=== PATIENT | male | born 2000 | race Two or more races ===

== ENCOUNTER 2025-10-06 12:21 | Inpatient (IN) | payer MEDICAID, SELFPAY ==
[2025-10-06] VITALS (12 sets, daily range): BP systolic 109–134; BP diastolic 71–100; PULSE 99–149; RESP 20–45; TEMP 36.3–39.3; O2SAT 90–99; BMI 16.6
--- NOTE | 2025-10-06 12:44 | EKG_ITS ---
[facility] Test Date: 2025-10-06 Pat Name: JAZMYNE CEDEÑO Department: Room: - Gender: Male Application Development Specialist: : [id number] Requested By: Henry Dimas Order Number: [id number] Reading MD: Henry Dimas Measurements Intervals [place] Rate: 134 P: 16 WY: 131 QRS: -85 QRSD: 77 T: 8 QT: 299 QTc: 448 Interpretive Statements SINUS TACHYCARDIA PATTERN CONSISTENT WITH PULMONARY DISEASE LEFT ANTERIOR FASCICULAR BLOCK [QRS AXIS <= -45, QR IN I, RS IN II] No previous ECG available for comparison /[id number]/S0/[id number].pdf
--- NOTE | 2025-10-06 12:49 | XR_ITS ---
AP portable semiupright chest film on 10/06/2025 1:06 p.m. CLINICAL HISTORY: None given COMPARISON STUDY: Chest film of 08/28/2005 FINDINGS: On the portable nature of this film together with extremely poor inspiration and high position of the diaphragm markedly obscures the lungs. Since the previous film the patient has had extensive surgical fusion of a large portion of the spine, there is slight rotatory scoliosis of the spine convexity to the right. The fusion hardware with bilateral pedicular screws and connecting rods begins at T2 and extends down at least to the level of L1, it could extend farther below the lower edge of the film In the posterior base of the right lower lobe there is a small localized patch of alveolar consolidation most consistent with a small zone of pneumonitis. In the retrocardiac portion of the left lower lobe, there is abnormal increased density. This produces multiple air bronchograms and it produces complete obscuration of the left hemidiaphragm. IMPRESSION: 1. Since the previous chest film the patient has had a very long spinal fusion operation, as outlined above. 2. There is evidence of major alveolar consolidation throughout all basal segments of the left lower lobe consistent with significant pneumonia. There is a small patch of pneumonitis also seen in the posterior base of the right lower lobe
[2025-10-06 13:17] LABS: Lactate (Lactic Acid) 2.8 mMol/L (0.4-2.0)
[2025-10-06 13:22] LABS: Basophils # (Auto) 0.0 Thou/mm3 (0.0-0.2); Basophils % (Auto) 0 % (0-2.5); Eosinophils # (Auto) 0.0 Thou/mm3 (0.0-0.5); Eosinophils % (Auto) 0 % (0-10); Hematocrit 45.0 % (41.0-53.0); Hemoglobin 15.5 g/dL (13.5-16.0); Immature Granulocytes Auto 0.08 Thou/mm3 (0.00-0.00); Lymphocytes # (Auto) 0.9 Thou/mm3 (1.0-4.8); Lymphocytes % (Auto) 6 % (10-50); Mean Corpuscular HGB Conc 34.4 g/dl (31.0-37.0); Mean Corpuscular Hemoglobin 28.4 pg (25.0-35.0); Mean Corpuscular Volume 82 fL (80-100); Monocytes # (Auto) 1.0 Thou/mm3 (0.0-0.8); Monocytes % (Auto) 7 % (0-12); Neutrophils # (Auto) 12.8 Thou/mm3 (1.8-7.7); Neutrophils % (Auto) 86 % (37-80); Nucleated Red Blood Cell # 0.00 Thou/mm3 (0.00-0.00); Nucleated Red Blood Cell % 0 /100 WBC (0); Platelet Count 260 Thou/mm3 (140-440); RDW Standard Deviation 41.8 fL (35.1-43.9); Red Blood Count 5.46 Miln/mm3 (4.50-5.90); White Blood Count 14.8 Thou/mm3 (3.8-10.6)
[2025-10-06 13:55] LABS: Alanine Aminotransferase 42 U/L (10-49); Albumin, Serum 4.3 gm/dL (3.5-5.0); Albumin/Globulin Ratio 1.4 (1.2-2.2); Alkaline Phosphatase 155 U/L (46-116); Anion Gap 13 (7-16); Aspartate Amino Transferase 29 U/L (0-34); BUN/Creatinine Ratio 16 Ratio (12-20); Bilirubin,Total 1.0 mg/dL (0.3-1.2); Blood Urea Nitrogen 8 mg/dL (9-23); Calcium 8.7 mg/dL (8.3-10.6); Calcium (Corrected) 8.7 mg/dL (8.5-10.1); Carbon Dioxide 25.1 mMol/L (20.0-31.0); Chloride 98 mMol/L (98-107); Creatinine (Component) 0.5 mg/dL (0.6-1.3); Estimated Creatinine Clearance 177.6 mL/min (>60); Globulin 3.1 gm/dL (2.3-3.5); Glucose 136 mg/dL (74-106); Lipase 34 U/L (12-53); Osmolality,Calculated 272 (275-295); Potassium 3.5 mMol/L (3.4-5.1); Sodium 136 mMol/L (136-145); Total Protein 7.4 gm/dL (5.7-8.2); eGFR > 60 See Note
[2025-10-06 13:56] LABS: B-Type Natriuretic Peptide 21 pg/mL (0-100)
[2025-10-06] MEDS: ALBUTEROL/IPRATROPIUM (Duoneb) RT SOL 3 ML NEBU INH (13:58)
[2025-10-06] MEDS: SODIUM CHLORIDE 0.9% 1000 ML 1,000 ML 150 ML IV ×2 (14:08→21:59)
[2025-10-06] MEDS: cefTRIAXone/D5w 1gm IV premix 1 GM/50 ML BAG IV (14:52)
--- NOTE | 2025-10-06 14:52 | PD.EDSOB ---
ED SOB =RME/HPI General Chief Complaint: Shortness of Breath/Dyspnea Stated Complaint: SOB Time Seen by Provider: 10/06/25 12:44 Source: family Arrival date/time: 10/06/25 12:21 Mode of arrival: EMS Limitations: physical limitation RME / HPI RME / HPI Narrative: This patient is a nonverbal bed bound 25-year-old male with a history of traumatic brain injury who basically operates as a paraplegic arrives to the ED today via EMS due to complaints of shortness of breath at home per brother. Brother states the patient began displaying signs of shortness of breath with some accessory muscle use and retractions. Brother states the symptoms began a day and a half ago and have continued. Mother states possible subjective fever. At time of arrival, patient's blood pressure was 134/89 with a pulse rate of 146 and a respiration rate of 33. Temperature was 102.7. Patient appeared moderately toxic at time of evaluation. Related Data Allergies Allergy/AdvReac Type Severity Reaction Status Date / Time amoxicillin Allergy Verified 10/06/25 13:22 Review of Systems Review of Systems Systems Reviewed: All systems reviewed, normal except as documented Narrative Review of Systems: Patient has a history of TBI and is nonverbal. Brother was present and gave all medical history related to patient's current complaints. Past Medical History Past Medical History NEUROLOGIC: Positive Traumatic Brain Injury CARDIAC: Negative Congestive Heart Failure RESPIRATORY: Negative Chronic Obstructive Pulmonary Disease (COPD) GENITOURINARY: Negative Renal Disease MUSCULOSKELETAL: Positive Musculoskeletal Disorders (SCOLIOSIS) and Scoliosis ENDOCRINE: Negative Diabetes Mellitus Type 1 or Diabetes Mellitus Type 2 Social History SMOKING STATUS: Never smoker ED Exam General Limitations: Present physical limitation General appearance: Present alert and other (Patient appears moderately ill at time of evaluation.) Head Head exam: Present other (Patient has a history of TBI with signs of cranial intervention.) Eye Eye exam: Present normal appearance, PERRL and EOMI ENT ENT exam: Present normal exam, normal oropharynx and mucous membranes moist Neck Neck exam: Present normal inspection and trachea midline Chest Chest inspection: Present normal inspection Respiratory Respiratory exam: Present other (Patient displays patchy rhonchi and wheezing throughout bilateral lung mallory. Patient displays shallow inspiration.) Cardiovascular Cardiovascular exam: Present regular rate, tachycardia and normal heart sounds Abdominal Exam Abdominal exam: Present soft and normal bowel sounds Rectal Exam Rectal exam: Present deferred Extremities Exam Extremities exam: Present other (Patient has a history of TBI and presents as a paraplegic with global muscle contraction) Back Exam Back exam: Present other (Patient has a history of scoliosis and displays signs of surgical intervention.) Neurological Exam Neurological exam: Present other (History of TBI and nonverbal communication) Psychiatric Psychiatric exam: Present other (Patient did not appear to be in distress due to facial expressions.) Skin Skin exam: Present warm, dry, intact and normal color Course Quality Measures Current suspected stage: sepsis Possible source: pulmonary Blood cultures ordered: completed in ED Antibiotic ordered: Yes Pertinent labs: 10/06/25 12:54 Lactic Acid 2.8 H mMol/L (0.4-2.0) sepsis Orders Category Date Time Status EKG (ED ONLY) *Do not use* NOW Care 10/06/25 12:44 Completed IV [Insert IV] NOW Care 10/06/25 12:52 Active EKG (ED Only) Stat Exams 10/06/25 12:44 Draft XR chest 1V portable Stat Exams 10/06/25 12:49 Completed BNP [B-Type Natriuretic Peptide] Stat Lab 10/06/25 12:54 Completed CBC Stat Lab 10/06/25 12:54 Completed CMP [Comprehensive Metabolic Panel] Stat Lab 10/06/25 12:54 Completed COVID-19 Antigen (In-House) Stat Lab 10/06/25 14:26 Received FLU A&B [Influenza A & B Rapid Panel] Stat Lab 10/06/25 14:26 Received Lactic Acid [Lactate (Lactic Acid)] Stat Lab 10/06/25 12:54 Results Lipase Stat Lab 10/06/25 12:54 Completed Albuterol/Ipratr Rt Theresa [Duoneb Rt Theresa] Med 10/06/25 13:45 Discontinued 3 ml INH X1 ONE Azithromycin Inj [Zithromax Inj] 500 mg Med 10/06/25 14:37 Active Sodium Chloride 0.9% 250 ml [Ns] 250 ml IV X1 Sodium Chloride 0.9% 1000 ml [Ns] 1,000 ml Med 10/06/25 13:44 Active IV 150 mls/hr Sodium Chloride 0.9% 1000 ml [Ns] 1,000 ml Med 10/06/25 13:40 Discontinued IV 999 mls/hr cefTRIAXone/D5w 1gm IV premix [Rocephin/D5w 1gm IV Med 10/06/25 14:37 Active premix] 1 gm in 50 ml IV X1 dexAMETHasone INJ [Decadron Inj] Med 10/06/25 13:45 Discontinued 10 mg IVP X1 ONE Reevaluation(s) Reevaluation #1: Patient's vitals were improving at reevaluation at 1500. Vital Signs Vital signs: Vital Signs Temperature 102.7 F H 10/06/25 12:40 Pulse Rate 146 H 10/06/25 12:40 Respiratory Rate 33 H 10/06/25 12:40 Blood Pressure 134/89 H 10/06/25 12:40 Pulse Oximetry (%) 94 L 10/06/25 12:40 Oxygen Delivery Method Aerosol Mask 10/06/25 12:40 Oxygen Flow Rate 15 10/06/25 12:40 Shortness of Breath / Dyspnea Patient data External records reviewed:: [facility] previous records Clinical information provided by:: family Social determinants that could affect healthcare access:: other (specify) (Patient is bedbound due to a history of TBI.) Patient has the following chronic illnesses:: Scoliosis that has required surgical intervention. History of TBI. How is presenting disease/condition affected by chronic disease/condition?: uneffected by Evaluation data The following diagnostics were reviewed and interpreted by me:: lab results, radiology exam(s) and EKG tracing(s) Lab and/or radiology exams considered but not ordered:: None Interpretation Summary: All studies performed the ED reevaluated by me personally. Serum studies revealed a WBC of 14.8 with a mild left shift. Lactic acid of 2.8 which responded to with fluid resuscitation. Due to the imaging studies and possible pulmonary edema, 30 mL/kg was not ordered but rather, 150 mL/h. Additional notation of elevated alk phos at 155. BNP was 21. EKG revealed a sinus tachycardia with a rate of 134. Pattern was consistent with pulmonary disease. Additional findings possible left anterior fascicular block was noted. CO interval of 131 and QT interval of 299. Chest x-ray confirmed a left lower lobe pneumonia. Sepsis protocol was initiated with dual antibiotics placed. Discussed the case with resident Dr. Jovel. Advised my patient presentation as well as laboratory, imaging and EKG results. He agreed to accept the patient as an admission. Patient will be admitted under Dr. Ni. Medications / Prescriptions Medications or Prescriptions considered but not ordered:: None Medication administrations:: Medication Administration History Sodium Chloride (Ns) 1,000 mls @ 150 mls/hr IV .Q6H40M YEYO Stop: 11/05/25 13:43 Last Admin: 10/06/25 14:08 Dose: 150 mls/hr Documented By: MEGGAN Ceftriaxone Sodium/Dextrose (Rocephin/D5w 1gm Iv Premix) 1 gm in 50 mls @ 100 mls/hr IV X1 ONE Stop: 10/06/25 15:06 Azithromycin 500 mg/ Sodium (Chloride) 250 mls @ 250 mls/hr IV X1 ONE Stop: 10/06/25 15:36 Discontinued Medications Albuterol/Ipratropium (Albuterol/Ipratropium (Duoneb) Rt Theresa 3 Ml Nebu) 3 ml INH X1 ONE Stop: 10/06/25 13:46 Last Admin: 10/06/25 13:58 Dose: 3 ml Documented By: AIDAN Dexamethasone Sodium Phosphate (Dexamethasone Sod Phos Inj 10 Mg/Ml Vial) 10 mg IVP X1 ONE Stop: 10/06/25 13:46 Last Admin: 10/06/25 14:08 Dose: 10 mg Documented By: MEGGAN Sodium Chloride (Ns) 1,000 mls @ 999 mls/hr IV .Q1H1M ONE Stop: 10/06/25 14:40 See above Consultations Consultation(s) initiated? (list below): Yes Consultation #1 (Physician, Specialty, Details): As noted above Diagnosis Shortness of Breath Differential Diagnosis: community acquired pneumonia Most likely diagnosis given after review of the tests above:: CAP Admission Indicated Admission indicated?: indicated Explain why admission is indicated or not indicated:: Due to the patient's elevated temperature, shortness of breath concerns and tachypneic response, patient requires admission for management of his progressive pneumonia. Admission Request Was there a request for admission?: Yes Admission Attestation Admission request attestation: Discussed case with Dr. Jovel from Hospitalist service regarding admission. Discussed patients ED course, exam findings, labs, and radiology results. The Hospitalist agreed to accept the patient for admission. Patient will be admitted under Dr. Ni Disposition Plan Disposition Plan: Admit Discharge Plan Plan Patient Disposition: Admit Acute Care w/in Hospital Prescriptions/Referrals Referrals: Jeni Gamez EQUIPMENT MAINTENANCE TECHNICIAN [Primary Care Provider] - In 1 week Problem List Clinical Impression: Community acquired pneumonia Patient/Caregiver Discharge Instructions Print Language: Luxembourgish Stand Alone Forms: Kelsey Award Info., Patient Portal Info Letter
[2025-10-06 15:02] LABS: COVID-19 Antigen (In-House) Negative (Negative); Influenza A Ag Positive; Influenza B Ag Negative
[2025-10-06] MEDS: AZITHROMYCIN INJ 500 MG in SODIUM CHLORIDE 0.9% 250 ML 250 ML 250 MG IV (15:21)
--- NOTE | 2025-10-06 16:11 | XR_ITS ---
Examination: Abdomen AP single view Technique: AP portable supine abdomen, single view Exam date and time: October 06, 2025, 1622 hours INDICATION: Abdominal pain today FINDINGS: Severe thoracolumbar dextroscoliosis and lower lumbar levoscoliosis with orthopedic support rods Moderate air and stool throughout the colon No obstruction Significant retrocardiac density Severe osteopenia Congenital right hip dysplasia IMPRESSION: Moderate air and stool throughout the colon, no obstruction Significant pneumonia left base
[2025-10-06 16:12] LABS: Reflex Lactate? Y
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
[2025-10-06] MEDS: ACETAMINOPHEN IVPB 1,000 MG/100 ML VIAL 250 MG IV ×2 (16:39→17:43)
[2025-10-06 16:50] LABS: Lactic Acid, 3 HR 1.0 mMol/L (0.4-2.0)
[2025-10-06] MEDS: SODIUM CL RT SOL 3% 4 ML NEBU (NON-FORMULARY) INH (18:05)
[2025-10-06] MEDS: VANCOMYCIN/WATER 1250 MG IVPB 250 ML 120 MG IV (18:49)
--- NOTE | 2025-10-06 21:09 | PD.IMCONS ---
HPI Data of Consult Requesting Physician: Rodrick Ni MD Primary Care Provider: Jeni Gamez NP Consult Narrative Reason for consult: cellulitis at the PEG site, fever, leukocytosis, History of present illness: 25 years old male with traumatic brain injury paraplegia and mentally challenged who was admitted with pneumonia influenza A hypoxic respiratory failure SIRS criteria he met seizure disorder He was also found to be having cellulitis around the PEG tube and I have been consulted Currently patient is on IV Zithromax and IV vancomycin No history is obtainable from the patient cc:: cc: Rodrick Ni MD Review of Systems Review of Systems ROS Unobtainable: unobtainable due to medical condition Past Medical History Surgical History OTHER SURGICAL HX: As in the history of present illness Meds Home Medications and Allergies Allergies Allergy/AdvReac Type Severity Reaction Status Date / Time amoxicillin Allergy Verified 10/06/25 13:22 Exam Vital Signs Temp Pulse Resp BP Pulse Ox O2 Del Method O2 Flow Rate 98.6 F 99 31 H 120/79 97 Oxy Mask 10 10/06/25 19:20 10/06/25 19:20 10/06/25 19:20 10/06/25 19:20 10/06/25 19:20 10/06/25 19:20 10/06/25 19:20 Constitutional Comments: Chronically ill-appearing Routine Respiratory Exam Comments: Scattered rhonchi Routine Abdominal Exam Comments: Soft redness around the PEG tube Results Labs 10/07/25 05:07 10/07/25 04:55 Labs: Short CBC 10/06/25 Range/Units 12:54 WBC 14.8 H (3.8-10.6) Thou/mm3 Hgb 15.5 (13.5-16.0) g/dL Hct 45.0 (41.0-53.0) % Plt Count 260 (140-440) Thou/mm3 BMP 10/06/25 12:54 Sodium 136 Potassium 3.5 Chloride 98 Carbon Dioxide 25.1 BUN 8 L Creatinine 0.5 L Glucose 136 H Calcium 8.7 Liver Function 10/06/25 Range/Units 12:54 Total Bilirubin 1.0 (0.3-1.2) mg/dL AST 29 (0-34) U/L ALT 42 (10-49) U/L Alkaline Phosphatase 155 H (46-116) U/L Albumin 4.3 (3.5-5.0) gm/dL Assessment and Plan Additional Assessment & Plan Additional Plan: # Fever leukocytosis most likely due to the influenza A pneumonia and not the cellulitis at the PEG site might be contributing to the leukocytosis. There is possible Plan Continue IV antibiotics Clean the PEG site every shift with Betadine Will follow the patient
[2025-10-06] MEDS: levETIRAcetam INJ 100 MG/ML VIAL 5ML 500 MG IVP (21:51)
[2025-10-06] MEDS: HEPARIN SOD INJ 5000 UNIT/ML VIAL SC (23:34)
[2025-10-07] VITALS (13 sets, daily range): BP systolic 106–120; BP diastolic 66–75; PULSE 83–111; RESP 12–30; TEMP 35.9–37.1; O2SAT 93–99; BMI 18.1; BMI 18.0
[2025-10-07] MEDS: ACETAMINOPHEN IVPB 1,000 MG/100 ML VIAL 250 MG IV ×2 (00:26→06:04)
[2025-10-07] MEDS: SODIUM CL RT SOL 3% 4 ML NEBU (NON-FORMULARY) INH ×6 (03:17→22:43)
[2025-10-07 05:29] LABS: Basophils # (Auto) 0.0 Thou/mm3 (0.0-0.2); Basophils % (Auto) 0 % (0-2.5); Eosinophils # (Auto) 0.0 Thou/mm3 (0.0-0.5); Eosinophils % (Auto) 0 % (0-10); Hematocrit 40.8 % (41.0-53.0); Hemoglobin 13.6 g/dL (13.5-16.0); Immature Granulocytes Auto 0.08 Thou/mm3 (0.00-0.00); Lymphocytes # (Auto) 0.8 Thou/mm3 (1.0-4.8); Lymphocytes % (Auto) 5 % (10-50); Mean Corpuscular HGB Conc 33.3 g/dl (31.0-37.0); Mean Corpuscular Hemoglobin 28.2 pg (25.0-35.0); Mean Corpuscular Volume 85 fL (80-100); Monocytes # (Auto) 0.4 Thou/mm3 (0.0-0.8); Monocytes % (Auto) 3 % (0-12); Neutrophils # (Auto) 14.8 Thou/mm3 (1.8-7.7); Neutrophils % (Auto) 92 % (37-80); Nucleated Red Blood Cell # 0.00 Thou/mm3 (0.00-0.00); Nucleated Red Blood Cell % 0 /100 WBC (0); Platelet Count 254 Thou/mm3 (140-440); RDW Standard Deviation 43.7 fL (35.1-43.9); Red Blood Count 4.82 Miln/mm3 (4.50-5.90); White Blood Count 16.1 Thou/mm3 (3.8-10.6)
[2025-10-07] MEDS: SODIUM CHLORIDE 0.9% 1000 ML 1,000 ML 150 ML IV ×3 (05:29→20:50)
[2025-10-07 05:46] LABS: Collection Type, Urine Catheter; Squamous Epithelial Cell,Urine 0 /hpf (0-5)
[2025-10-07 06:01] LABS: Bilirubin,Urine Negative (Negative); Blood,Urine Negative (Negative); Clarity,Urine Clear (Clear/Hazy); Color,Urine Yellow (Lt Yel-Yel); Glucose, Urine Negative (Negative); Ketones,Urine Negative (Negative); Leukocyte Esterase,Urine Negative (Negative); Nitrite,Urine Negative (Negative); PH,Urine 6.5 (5.0-7.0); Protein,Urine Trace (Neg - Trace); RBC,Urine 1 /hpf (0-3); Specific Gravity,Urine 1.039 (1.001-1.035); Urobilinogen,Urine Negative mg/dL (0.0-1.0); WBC,Urine 3 /hpf (0-5)
[2025-10-07] MEDS: HEPARIN SOD INJ 5000 UNIT/ML VIAL SC ×2 (06:08→22:33)
[2025-10-07 06:18] LABS: Alanine Aminotransferase 38 U/L (10-49); Albumin, Serum 3.8 gm/dL (3.5-5.0); Albumin/Globulin Ratio 1.3 (1.2-2.2); Alkaline Phosphatase 134 U/L (46-116); Anion Gap 12 (7-16); Aspartate Amino Transferase 32 U/L (0-34); BUN/Creatinine Ratio 20 Ratio (12-20); Bilirubin,Total 0.8 mg/dL (0.3-1.2); Blood Urea Nitrogen 8 mg/dL (9-23); Calcium 8.6 mg/dL (8.3-10.6); Calcium (Corrected) 8.8 mg/dL (8.5-10.1); Carbon Dioxide 24.7 mMol/L (20.0-31.0); Chloride 107 mMol/L (98-107); Creatinine (Component) 0.4 mg/dL (0.6-1.3); Estimated Creatinine Clearance 222.1 mL/min (>60); Free T4 (Free Thyroxine) 1.41 ng/dL (0.89-1.76); Globulin 3.0 gm/dL (2.3-3.5); Glucose 131 mg/dL (74-106); Magnesium 2.0 mg/dL (1.6-2.6); Osmolality,Calculated 287 (275-295); Phosphorous 3.1 mg/dL (2.4-5.1); Potassium 3.6 mMol/L (3.4-5.1); Sodium 144 mMol/L (136-145); Thyroid Stimulating Hormone 0.42 uIU/mL (0.55-4.78); Total Protein 6.8 gm/dL (5.7-8.2); eGFR > 60 See Note
[2025-10-07] MEDS: VANCOMYCIN/WATER 1GM IVPB 200 ML IV ×3 (09:02→22:46)
[2025-10-07] MEDS: cefTRIAXone/D5w 1gm IV premix 1 GM/50 ML BAG IV (09:02)
[2025-10-07] MEDS: AZITHROMYCIN INJ 500 MG in SODIUM CHLORIDE 0.9% 250 ML 250 ML 250 MG IV (09:02)
[2025-10-07] MEDS: levETIRAcetam INJ 100 MG/ML VIAL 5ML 500 MG IVP ×2 (09:03→20:43)
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
[2025-10-07] MEDS: ALBUTEROL/IPRATROPIUM (Duoneb) RT SOL 3 ML NEBU INH ×4 (10:30→22:35)
[2025-10-07 13:32] LABS: Cocci Serology, IgM Negative (Negative)
--- NOTE | 2025-10-07 19:10 | PD.IMPROG ---
Documentation for date of: 10/07/25 Subjective Subjective Interval history: Patient evaluated PEG site clearly checked It is the bile which is coming to the PEG site The site is really not infected it is just skin irritation from the bile and the acid I went to the nursing station and talk to the RN to put a 4 x 4 splint in the middle and changed to every 8 hours It will soak up the bile and the acid and help healing the skin on the surface Exam Vital Signs Temp Pulse Resp BP Pulse Ox O2 Del Method O2 Flow Rate 97.1 F 102 H 20 117/66 95 Oxy Mask 4 10/07/25 16:00 10/07/25 16:00 10/07/25 16:00 10/07/25 16:00 10/07/25 16:00 10/07/25 16:00 10/07/25 16:00 Objective Labs 10/07/25 05:07 10/07/25 04:55 Labs: Laboratory Results - last 24 hr 10/06/25 10/07/25 10/07/25 19:47 04:55 05:07 WBC 16.1 H RBC 4.82 Hgb 13.6 Hct 40.8 L MCV 85 MCH 28.2 MCHC 33.3 RDW Std Deviation 43.7 Plt Count 254 Neut % (Auto) 92 H Lymph % (Auto) 5 L [place] % (Auto) 3 Eos % (Auto) 0 Baso % (Auto) 0 Neut # (Auto) 14.8 H Lymph # (Auto) 0.8 L [place] # (Auto) 0.4 Eos # (Auto) 0.0 Baso # (Auto) 0.0 Immature Gran # (Auto) 0.08 H Absolute Nucleated RBC 0.00 Immature Gran % 1 H Nucleated RBC % 0 Sodium 144 Potassium 3.6 Chloride 107 Carbon Dioxide 24.7 Anion Gap 12 BUN 8 L Creatinine 0.4 L Estim Creat Clear Calc 222.1 eGFR > 60 BUN/Creatinine Ratio 20 Glucose 131 H Calculated Osmolality 287 Calcium 8.6 Corrected Calcium 8.8 Phosphorus 3.1 Magnesium 2.0 Total Bilirubin 0.8 AST 32 ALT 38 Alkaline Phosphatase 134 H D Total Protein 6.8 Albumin 3.8 D Globulin 3.0 Albumin/Globulin Ratio 1.3 TSH 0.42 L Free T4 1.41 Ur Collection Type Catheter Urine Color Yellow Urine Clarity Clear Urine pH 6.5 Ur Specific [place] 1.039 H Urine Protein Trace Urine Glucose (UA) Negative Urine Ketones Negative Urine Blood Negative Urine Nitrite Negative Urine Bilirubin Negative Urine Urobilinogen (Auto) Negative Ur Leukocyte Esterase Negative Urine RBC 1 Urine WBC 3 Ur Squamous Epith Cells 0 Urine Bacteria None Coccidioides IgM Ab Negative Impressions Impression: Gastric content induced localized chemical cellulitis Plan Dressing changes every 8 hours as recommended to the nursing staff Assessment & Plan A&P Narrative # Fever leukocytosis most likely due to the influenza A pneumonia and not the cellulitis at the PEG site might be contributing to the leukocytosis. There is possible Plan Continue IV antibiotics Clean the PEG site every shift with Betadine Will follow the patient Time Spent With Patient Time: Total time spent is greater than 50% in coordination of care (as documented) at patient's floor/unit and/or counseling patient:
[2025-10-07 22:14] LABS: Vancomycin,Trough 11.8 mcg/mL (5.0-10.0)
[2025-10-08] VITALS (13 sets, daily range): BP systolic 114–121; BP diastolic 68–83; PULSE 88–148; RESP 18–41; TEMP 36.1–36.6; O2SAT 94–99
[2025-10-08] MEDS: ACETAMINOPHEN IVPB 1,000 MG/100 ML VIAL 250 MG IV (00:44)
[2025-10-08] MEDS: ALBUTEROL/IPRATROPIUM (Duoneb) RT SOL 3 ML NEBU INH ×6 (02:27→23:04)
[2025-10-08 05:14] LABS: Basophils # (Auto) 0.0 Thou/mm3 (0.0-0.2); Basophils % (Auto) 0 % (0-2.5); Eosinophils # (Auto) 0.0 Thou/mm3 (0.0-0.5); Eosinophils % (Auto) 0 % (0-10); Hematocrit 36.7 % (41.0-53.0); Hemoglobin 12.3 g/dL (13.5-16.0); Immature Granulocytes Auto 0.07 Thou/mm3 (0.00-0.00); Lymphocytes # (Auto) 2.0 Thou/mm3 (1.0-4.8); Lymphocytes % (Auto) 16 % (10-50); Mean Corpuscular HGB Conc 33.5 g/dl (31.0-37.0); Mean Corpuscular Hemoglobin 28.5 pg (25.0-35.0); Mean Corpuscular Volume 85 fL (80-100); Monocytes # (Auto) 1.0 Thou/mm3 (0.0-0.8); Monocytes % (Auto) 8 % (0-12); Neutrophils # (Auto) 9.5 Thou/mm3 (1.8-7.7); Neutrophils % (Auto) 75 % (37-80); Nucleated Red Blood Cell # 0.00 Thou/mm3 (0.00-0.00); Nucleated Red Blood Cell % 0 /100 WBC (0); Platelet Count 326 Thou/mm3 (140-440); RDW Standard Deviation 44.4 fL (35.1-43.9); Red Blood Count 4.32 Miln/mm3 (4.50-5.90); White Blood Count 12.7 Thou/mm3 (3.8-10.6)
[2025-10-08] MEDS: VANCOMYCIN/WATER 1GM IVPB 200 ML IV ×3 (05:27→21:00)
[2025-10-08] MEDS: HEPARIN SOD INJ 5000 UNIT/ML VIAL SC ×3 (05:32→21:00)
[2025-10-08] MEDS: SODIUM CHLORIDE 0.9% 1000 ML 1,000 ML 150 ML IV ×3 (05:32→20:50)
[2025-10-08 05:44] LABS: Alanine Aminotransferase 31 U/L (10-49); Albumin, Serum 3.5 gm/dL (3.5-5.0); Albumin/Globulin Ratio 1.4 (1.2-2.2); Alkaline Phosphatase 111 U/L (46-116); Anion Gap 12 (7-16); Aspartate Amino Transferase 33 U/L (0-34); BUN/Creatinine Ratio 23 Ratio (12-20); Bilirubin,Total 0.6 mg/dL (0.3-1.2); Blood Urea Nitrogen 9 mg/dL (9-23); Calcium 8.4 mg/dL (8.3-10.6); Calcium (Corrected) 8.8 mg/dL (8.5-10.1); Carbon Dioxide 21.4 mMol/L (20.0-31.0); Chloride 110 mMol/L (98-107); Creatinine (Component) 0.4 mg/dL (0.6-1.3); Estimated Creatinine Clearance 241.6 mL/min (>60); Globulin 2.5 gm/dL (2.3-3.5); Glucose 92 mg/dL (74-106); Magnesium 1.9 mg/dL (1.6-2.6); Osmolality,Calculated 283 (275-295); Phosphorous 2.7 mg/dL (2.4-5.1); Potassium 3.5 mMol/L (3.4-5.1); Sodium 143 mMol/L (136-145); Total Protein 6.0 gm/dL (5.7-8.2); eGFR > 60 See Note
--- NOTE | 2025-10-08 09:00 | PC.SS ---
Follow up note: Cultures are pending.
[2025-10-08] MEDS: AZITHROMYCIN INJ 500 MG in SODIUM CHLORIDE 0.9% 250 ML 250 ML 250 MG IV (09:17)
[2025-10-08] MEDS: levETIRAcetam INJ 100 MG/ML VIAL 5ML 500 MG IVP ×2 (09:18→20:51)
[2025-10-08] MEDS: cefTRIAXone/D5w 1gm IV premix 1 GM/50 ML BAG IV (09:19)
--- NOTE | 2025-10-08 11:39 | PC.SS ---
Late note 10-07-25: SS met with patient and brother, Joo regarding pateint's d/c plan. Pt is non verbal. Pt was admitted for Sepsis. Brother confirmed demographic and contact information is correct on facesheet. Pt resides with both parents and brother. Pt transfers into wheelchair with assistance. Pt has a henok lift. Pt requires assistance with all ADLs. SS spoke to mom by phone who explained she is patient's medical decision maker. Pt utilizes nocturnal O2. Per mom, pt will return home upon dc. Patient?s pharmacy of choice is [facility]. Pt will require transportation home. D/C plan: Return home Next of Kin: Baljeet dorsey, mom, phone# [phone] or Joo Zelaya, dad, phone# [phone] PCP: [facility] Address: Correct on facesheet
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
--- NOTE | 2025-10-08 17:16 | PD.IMPROG ---
Documentation for date of: 10/08/25 Subjective Subjective Interval history: Patient evaluated Just the bile through the gastrostomy site but no pus or purulent drainage Exam Vital Signs Temp Pulse Resp BP Pulse Ox O2 Del Method O2 Flow Rate 97.0 F 110 H 18 119/70 98 Nasal Cannula 3 10/08/25 12:00 10/08/25 14:07 10/08/25 14:07 10/08/25 12:00 10/08/25 14:07 10/08/25 12:00 10/08/25 14:07 Objective Labs 10/08/25 04:55 10/08/25 04:55 Labs: Laboratory Results - last 24 hr 10/07/25 10/08/25 21:10 04:55 WBC 12.7 H RBC 4.32 L Hgb 12.3 L Hct 36.7 L MCV 85 MCH 28.5 MCHC 33.5 RDW Std Deviation 44.4 H Plt Count 326 D Neut % (Auto) 75 Lymph % (Auto) 16 [place] % (Auto) 8 Eos % (Auto) 0 Baso % (Auto) 0 Neut # (Auto) 9.5 H Lymph # (Auto) 2.0 [place] # (Auto) 1.0 H Eos # (Auto) 0.0 Baso # (Auto) 0.0 Immature Gran # (Auto) 0.07 H Absolute Nucleated RBC 0.00 Immature Gran % 1 H Nucleated RBC % 0 Sodium 143 Potassium 3.5 Chloride 110 H Carbon Dioxide 21.4 Anion Gap 12 BUN 9 Creatinine 0.4 L Estim Creat Clear Calc 241.6 eGFR > 60 BUN/Creatinine Ratio 23 H Glucose 92 Calculated Osmolality 283 Calcium 8.4 Corrected Calcium 8.8 Phosphorus 2.7 Magnesium 1.9 Total Bilirubin 0.6 AST 33 ALT 31 Alkaline Phosphatase 111 D Total Protein 6.0 Albumin 3.5 Globulin 2.5 Albumin/Globulin Ratio 1.4 Vancomycin Trough 11.8 H Impressions Impression: Bile induced dermatitis at the site of the PEG placement Went over the dressing changes with the nursing staff Assessment & Plan A&P Narrative # Fever leukocytosis most likely due to the influenza A pneumonia and not the cellulitis at the PEG site might be contributing to the leukocytosis. There is possible Plan Continue IV antibiotics Clean the PEG site every shift with Betadine Will follow the patient Time Spent With Patient Time: Total time spent is greater than 50% in coordination of care (as documented) at patient's floor/unit and/or counseling patient:
[2025-10-09] VITALS (13 sets, daily range): BP systolic 96–124; BP diastolic 67–82; PULSE 84–141; RESP 26–56; TEMP 36.2–37.7; O2SAT 95–99; BMI 18.0
--- NOTE | 2025-10-09 00:29 | PC.NURSE ---
Called hospitalist Dr. Saini regarding patient having a lot of cough, low grade fever 100.3, and HR in the 120-130s, MD will order bolus of LR and to notify if fever is above 101 to order tylenol, will continue to monitor.
[2025-10-09] MEDS: ACETAMINOPHEN SOL 325 MG/10 ML UDC 500 MG GT ×2 (00:51→21:18)
[2025-10-09] MEDS: RINGERS LACTATED 1000 ML 1,000 ML 999 ML IV (00:51)
[2025-10-09] MEDS: ALBUTEROL/IPRATROPIUM (Duoneb) RT SOL 3 ML NEBU INH ×6 (03:23→22:34)
[2025-10-09] MEDS: VANCOMYCIN/WATER 1GM IVPB 200 ML IV (05:33)
[2025-10-09] MEDS: HEPARIN SOD INJ 5000 UNIT/ML VIAL SC ×2 (05:33→21:18)
[2025-10-09 06:21] LABS: Basophils # (Auto) 0.0 Thou/mm3 (0.0-0.2); Basophils % (Auto) 0 % (0-2.5); Eosinophils # (Auto) 0.0 Thou/mm3 (0.0-0.5); Eosinophils % (Auto) 0 % (0-10); Hematocrit 38.9 % (41.0-53.0); Hemoglobin 13.7 g/dL (13.5-16.0); Immature Granulocytes Auto 0.09 Thou/mm3 (0.00-0.00); Lymphocytes # (Auto) 2.0 Thou/mm3 (1.0-4.8); Lymphocytes % (Auto) 17 % (10-50); Mean Corpuscular HGB Conc 35.2 g/dl (31.0-37.0); Mean Corpuscular Hemoglobin 28.7 pg (25.0-35.0); Mean Corpuscular Volume 82 fL (80-100); Monocytes # (Auto) 1.4 Thou/mm3 (0.0-0.8); Monocytes % (Auto) 12 % (0-12); Neutrophils # (Auto) 8.6 Thou/mm3 (1.8-7.7); Neutrophils % (Auto) 71 % (37-80); Nucleated Red Blood Cell # 0.00 Thou/mm3 (0.00-0.00); Nucleated Red Blood Cell % 0 /100 WBC (0); Platelet Count 398 Thou/mm3 (140-440); RDW Standard Deviation 41.2 fL (35.1-43.9); Red Blood Count 4.77 Miln/mm3 (4.50-5.90); White Blood Count 12.1 Thou/mm3 (3.8-10.6)
[2025-10-09 06:43] LABS: Alanine Aminotransferase 43 U/L (10-49); Albumin, Serum 3.8 gm/dL (3.5-5.0); Albumin/Globulin Ratio 1.4 (1.2-2.2); Alkaline Phosphatase 115 U/L (46-116); Anion Gap 15 (7-16); Aspartate Amino Transferase 63 U/L (0-34); BUN/Creatinine Ratio 17 Ratio (12-20); Bilirubin,Total 0.8 mg/dL (0.3-1.2); Blood Urea Nitrogen < 5 mg/dL (9-23); Calcium 8.5 mg/dL (8.3-10.6); Calcium (Corrected) 8.7 mg/dL (8.5-10.1); Carbon Dioxide 24.4 mMol/L (20.0-31.0); Chloride 98 mMol/L (98-107); Creatinine (Component) 0.3 mg/dL (0.6-1.3); Estimated Creatinine Clearance 321.6 mL/min (>60); Globulin 2.8 gm/dL (2.3-3.5); Glucose 97 mg/dL (74-106); Magnesium 1.5 mg/dL (1.6-2.6); Osmolality,Calculated 271 (275-295); Phosphorous 2.7 mg/dL (2.4-5.1); Sodium 137 mMol/L (136-145); Total Protein 6.6 gm/dL (5.7-8.2); eGFR > 60 See Note
[2025-10-09 06:46] LABS: Potassium 2.6 mMol/L (3.4-5.1)
[2025-10-09] MEDS: POTASSIUM CHLORIDE 10% 20 MEQ/15 ML UDC 40 MEQ GT ×2 (07:11→09:06)
[2025-10-09] MEDS: levETIRAcetam INJ 100 MG/ML VIAL 5ML 500 MG IVP ×2 (09:06→21:19)
[2025-10-09] MEDS: cefTRIAXone/D5w 1gm IV premix 1 GM/50 ML BAG IV (09:07)
[2025-10-09] MEDS: Magnesium Sulfate 4 GM Ivpb 4 GM/50 ML BAG IV (09:53)
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
[2025-10-09 14:10] LABS: Vancomycin,Trough 8.2 mcg/mL (5.0-10.0)
[2025-10-09 14:19] LABS: Cocci Serology, IgG Negative (Negative)
[2025-10-09 14:40] LABS: Potassium 3.7 mMol/L (3.4-5.1)
[2025-10-09] MEDS: Vancomycin Inj 1,500 MG in SODIUM CHLORIDE 0.9% 500 ML 500 ML 200 MG IV ×2 (15:19→21:28)
--- NOTE | 2025-10-09 15:24 | XR_ITS ---
EXAMINATION: AP chest single view TECHNIQUE: Portable AP chest supines single view Date and time: October 09, 2025, 1531 hours, comparison October 06, 2025 INDICATIONS: Hypoxia this week. FINDINGS: Significant bilateral opacity consistent with pneumonia The film is rotated LPO Left ventricle appears prominent Severe thoracic dextroscoliosis with orthopedic support rods IMPRESSION: Significant bilateral pneumonia
--- NOTE | 2025-10-09 19:31 | PD.IMPROG ---
Documentation for date of: 10/09/25 Subjective Subjective Interval history: Patient evaluated PEG site looks better With the dressing changes looks better Exam Vital Signs Temp Pulse Resp BP Pulse Ox O2 Del Method O2 Flow Rate 97.2 F 134 H 36 H 118/76 99 Nasal Cannula 3 10/09/25 16:00 10/09/25 18:57 10/09/25 18:57 10/09/25 16:00 10/09/25 18:57 10/09/25 16:00 10/09/25 18:57 Objective Labs 10/09/25 05:57 10/09/25 14:20 Labs: Laboratory Results - last 24 hr 10/06/25 10/09/25 10/09/25 19:47 05:57 12:59 WBC 12.1 H RBC 4.77 Hgb 13.7 Hct 38.9 L MCV 82 MCH 28.7 MCHC 35.2 RDW Std Deviation 41.2 Plt Count 398 D Neut % (Auto) 71 Lymph % (Auto) 17 [place] % (Auto) 12 Eos % (Auto) 0 Baso % (Auto) 0 Neut # (Auto) 8.6 H Lymph # (Auto) 2.0 [place] # (Auto) 1.4 H Eos # (Auto) 0.0 Baso # (Auto) 0.0 Immature Gran # (Auto) 0.09 H Absolute Nucleated RBC 0.00 Immature Gran % 1 H Nucleated RBC % 0 Sodium 137 Potassium 2.6 L* D Chloride 98 Carbon Dioxide 24.4 Anion Gap 15 BUN < 5 L Creatinine 0.3 L Estim Creat Clear Calc 321.6 eGFR > 60 BUN/Creatinine Ratio 17 Glucose 97 Calculated Osmolality 271 L Calcium 8.5 Corrected Calcium 8.7 Phosphorus 2.7 Magnesium 1.5 L Total Bilirubin 0.8 AST 63 H ALT 43 Alkaline Phosphatase 115 Total Protein 6.6 Albumin 3.8 Globulin 2.8 Albumin/Globulin Ratio 1.4 Vancomycin Trough 8.2 Coccidioides IgG Ab Negative 10/09/25 14:20 WBC RBC Hgb Hct MCV MCH MCHC RDW Std Deviation Plt Count Neut % (Auto) Lymph % (Auto) [place] % (Auto) Eos % (Auto) Baso % (Auto) Neut # (Auto) Lymph # (Auto) [place] # (Auto) Eos # (Auto) Baso # (Auto) Immature Gran # (Auto) Absolute Nucleated RBC Immature Gran % Nucleated RBC % Sodium Potassium 3.7 D Chloride Carbon Dioxide Anion Gap BUN Creatinine Estim Creat Clear Calc eGFR BUN/Creatinine Ratio Glucose Calculated Osmolality Calcium Corrected Calcium Phosphorus Magnesium Total Bilirubin AST ALT Alkaline Phosphatase Total Protein Albumin Globulin Albumin/Globulin Ratio Vancomycin Trough Coccidioides IgG Ab Impressions Impression: Bile leakage at the PEG site not unusual because the stoma is somewhat bigger because of the chronic PEG tube placement than the size of the PEG tube Dressing change change advised to the patient and patient is doing better All it is, is local irritation by the bile Assessment & Plan A&P Narrative # Fever leukocytosis most likely due to the influenza A pneumonia and not the cellulitis at the PEG site might be contributing to the leukocytosis. There is possible Plan Continue IV antibiotics Clean the PEG site every shift with Betadine Will follow the patient Time Spent With Patient Time: Total time spent is greater than 50% in coordination of care (as documented) at patient's floor/unit and/or counseling patient:
[2025-10-10] VITALS (16 sets, daily range): BP systolic 98–113; BP diastolic 52–76; PULSE 76–131; RESP 22–60; TEMP 36.7–37.9; O2SAT 95–100; BMI 18.0
--- NOTE | 2025-10-10 00:03 | PC.NURSE ---
Made MD chaudhry aware of pts current temp of 100.2 and sustaining in the 120s HR. Per MD will look into it and put in orders for now initiate cooling measures.
[2025-10-10] MEDS: RINGERS LACTATED 500 ML 500 ML 999 ML IV (00:44)
[2025-10-10] MEDS: ALBUTEROL/IPRATROPIUM (Duoneb) RT SOL 3 ML NEBU INH ×6 (02:50→23:06)
[2025-10-10] MEDS: Vancomycin Inj 1,500 MG in SODIUM CHLORIDE 0.9% 500 ML 500 ML 200 MG IV ×3 (05:15→21:29)
[2025-10-10] MEDS: HEPARIN SOD INJ 5000 UNIT/ML VIAL SC ×3 (05:15→21:45)
[2025-10-10] MEDS: ACETAMINOPHEN SOL 325 MG/10 ML UDC 500 MG GT ×2 (07:33→22:11)
[2025-10-10 07:51] LABS: Basophils # (Auto) 0.0 Thou/mm3 (0.0-0.2); Basophils % (Auto) 0 % (0-2.5); Eosinophils # (Auto) 0.0 Thou/mm3 (0.0-0.5); Eosinophils % (Auto) 0 % (0-10); Hematocrit 37.0 % (41.0-53.0); Hemoglobin 12.9 g/dL (13.5-16.0); Immature Granulocytes Auto 0.13 Thou/mm3 (0.00-0.00); Lymphocytes # (Auto) 2.1 Thou/mm3 (1.0-4.8); Lymphocytes % (Auto) 21 % (10-50); Mean Corpuscular HGB Conc 34.9 g/dl (31.0-37.0); Mean Corpuscular Hemoglobin 28.8 pg (25.0-35.0); Mean Corpuscular Volume 83 fL (80-100); Monocytes # (Auto) 1.3 Thou/mm3 (0.0-0.8); Monocytes % (Auto) 12 % (0-12); Neutrophils # (Auto) 6.6 Thou/mm3 (1.8-7.7); Neutrophils % (Auto) 65 % (37-80); Nucleated Red Blood Cell # 0.00 Thou/mm3 (0.00-0.00); Nucleated Red Blood Cell % 0 /100 WBC (0); Platelet Count 371 Thou/mm3 (140-440); RDW Standard Deviation 42.4 fL (35.1-43.9); Red Blood Count 4.48 Miln/mm3 (4.50-5.90); White Blood Count 10.1 Thou/mm3 (3.8-10.6)
[2025-10-10 08:11] LABS: Alanine Aminotransferase 73 U/L (10-49); Albumin, Serum 3.7 gm/dL (3.5-5.0); Albumin/Globulin Ratio 1.4 (1.2-2.2); Alkaline Phosphatase 113 U/L (46-116); Anion Gap 11 (7-16); Aspartate Amino Transferase 78 U/L (0-34); BUN/Creatinine Ratio 20 Ratio (12-20); Bilirubin,Total 0.6 mg/dL (0.3-1.2); Blood Urea Nitrogen 6 mg/dL (9-23); Calcium 8.5 mg/dL (8.3-10.6); Calcium (Corrected) 8.7 mg/dL (8.5-10.1); Carbon Dioxide 25.1 mMol/L (20.0-31.0); Chloride 104 mMol/L (98-107); Creatinine (Component) 0.3 mg/dL (0.6-1.3); Estimated Creatinine Clearance 321.6 mL/min (>60); Globulin 2.7 gm/dL (2.3-3.5); Glucose 101 mg/dL (74-106); Magnesium 1.9 mg/dL (1.6-2.6); Osmolality,Calculated 277 (275-295); Phosphorous 2.5 mg/dL (2.4-5.1); Potassium 3.6 mMol/L (3.4-5.1); Sodium 140 mMol/L (136-145); Total Protein 6.4 gm/dL (5.7-8.2); eGFR > 60 See Note
[2025-10-10] MEDS: levETIRAcetam INJ 100 MG/ML VIAL 5ML 500 MG IVP ×2 (08:55→21:35)
[2025-10-10] MEDS: cefTRIAXone/D5w 1gm IV premix 1 GM/50 ML BAG IV (09:10)
[2025-10-10] MEDS: GABAPENTIN 300 MG CAPSULE GT ×3 (10:05→21:38)
[2025-10-10] MEDS: RINGERS LACTATED 1000 ML 1,000 ML 500 ML IV (10:11)
[2025-10-10 14:08] LABS: Vancomycin,Trough 12.8 mcg/mL (5.0-10.0)
--- NOTE | 2025-10-10 15:51 | PC.SS ---
Rounding: Pt had tachycardia, will need O2 referral sent for continuos O2, as pt current order is only for nocturnal
--- NOTE | 2025-10-10 17:40 | PD.IMPROG ---
Documentation for date of: 10/10/25 Subjective Subjective Interval history: PEG site looks good There is bile leakage which is not preventable Exam Vital Signs Temp Pulse Resp BP Pulse Ox O2 Del Method O2 Flow Rate 98.2 F 104 H 26 H 98/76 100 Nasal Cannula 3 10/10/25 16:00 10/10/25 16:00 10/10/25 16:00 10/10/25 16:00 10/10/25 16:00 10/10/25 16:00 10/10/25 16:00 Objective Labs 10/10/25 07:23 10/10/25 07:23 Labs: Laboratory Results - last 24 hr 10/10/25 10/10/25 07:23 13:15 WBC 10.1 RBC 4.48 L Hgb 12.9 L Hct 37.0 L MCV 83 MCH 28.8 MCHC 34.9 RDW Std Deviation 42.4 Plt Count 371 Neut % (Auto) 65 Lymph % (Auto) 21 [place] % (Auto) 12 Eos % (Auto) 0 Baso % (Auto) 0 Neut # (Auto) 6.6 Lymph # (Auto) 2.1 [place] # (Auto) 1.3 H Eos # (Auto) 0.0 Baso # (Auto) 0.0 Immature Gran # (Auto) 0.13 H Absolute Nucleated RBC 0.00 Immature Gran % 1 H Nucleated RBC % 0 Sodium 140 Potassium 3.6 Chloride 104 Carbon Dioxide 25.1 Anion Gap 11 BUN 6 L Creatinine 0.3 L Estim Creat Clear Calc 321.6 eGFR > 60 BUN/Creatinine Ratio 20 Glucose 101 Calculated Osmolality 277 Calcium 8.5 Corrected Calcium 8.7 Phosphorus 2.5 Magnesium 1.9 Total Bilirubin 0.6 AST 78 H ALT 73 H Alkaline Phosphatase 113 Total Protein 6.4 Albumin 3.7 Globulin 2.7 Albumin/Globulin Ratio 1.4 Vancomycin Trough 12.8 H Impressions Impression: Bile leak is at the PEG site Dressing change every 12 Assessment & Plan A&P Narrative # Fever leukocytosis most likely due to the influenza A pneumonia and not the cellulitis at the PEG site might be contributing to the leukocytosis. There is possible Plan Continue IV antibiotics Clean the PEG site every shift with Betadine Will follow the patient Time Spent With Patient Time: Total time spent is greater than 50% in coordination of care (as documented) at patient's floor/unit and/or counseling patient:
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
[2025-10-11] VITALS (14 sets, daily range): BP systolic 104–134; BP diastolic 68–94; PULSE 101–128; RESP 20–45; TEMP 36.4–37.1; O2SAT 93–100; BMI 18.0
[2025-10-11] MEDS: ALBUTEROL/IPRATROPIUM (Duoneb) RT SOL 3 ML NEBU INH ×6 (02:55→23:18)
[2025-10-11] MEDS: GABAPENTIN 300 MG CAPSULE GT ×3 (05:41→21:57)
[2025-10-11] MEDS: Vancomycin Inj 1,500 MG in SODIUM CHLORIDE 0.9% 500 ML 500 ML 200 MG IV ×2 (05:41→14:57)
[2025-10-11] MEDS: HEPARIN SOD INJ 5000 UNIT/ML VIAL SC ×3 (05:47→21:57)
[2025-10-11 06:25] LABS: Basophils # (Auto) 0.0 Thou/mm3 (0.0-0.2); Basophils % (Auto) 0 % (0-2.5); Eosinophils # (Auto) 0.0 Thou/mm3 (0.0-0.5); Eosinophils % (Auto) 0 % (0-10); Hematocrit 38.0 % (41.0-53.0); Hemoglobin 12.5 g/dL (13.5-16.0); Immature Granulocytes Auto 0.15 Thou/mm3 (0.00-0.00); Lymphocytes # (Auto) 2.6 Thou/mm3 (1.0-4.8); Lymphocytes % (Auto) 29 % (10-50); Mean Corpuscular HGB Conc 32.9 g/dl (31.0-37.0); Mean Corpuscular Hemoglobin 27.8 pg (25.0-35.0); Mean Corpuscular Volume 85 fL (80-100); Monocytes # (Auto) 1.3 Thou/mm3 (0.0-0.8); Monocytes % (Auto) 14 % (0-12); Neutrophils # (Auto) 5.0 Thou/mm3 (1.8-7.7); Neutrophils % (Auto) 55 % (37-80); Nucleated Red Blood Cell # 0.00 Thou/mm3 (0.00-0.00); Nucleated Red Blood Cell % 0 /100 WBC (0); Platelet Count 440 Thou/mm3 (140-440); RDW Standard Deviation 44.5 fL (35.1-43.9); Red Blood Count 4.49 Miln/mm3 (4.50-5.90); White Blood Count 9.0 Thou/mm3 (3.8-10.6)
[2025-10-11 07:02] LABS: Alanine Aminotransferase 78 U/L (10-49); Albumin, Serum 3.8 gm/dL (3.5-5.0); Albumin/Globulin Ratio 1.3 (1.2-2.2); Alkaline Phosphatase 106 U/L (46-116); Anion Gap 13 (7-16); Aspartate Amino Transferase 53 U/L (0-34); BUN/Creatinine Ratio 17 Ratio (12-20); Bilirubin,Total 0.4 mg/dL (0.3-1.2); Blood Urea Nitrogen 5 mg/dL (9-23); Calcium 8.8 mg/dL (8.3-10.6); Calcium (Corrected) 9.0 mg/dL (8.5-10.1); Carbon Dioxide 26.5 mMol/L (20.0-31.0); Chloride 103 mMol/L (98-107); Creatinine (Component) 0.3 mg/dL (0.6-1.3); Estimated Creatinine Clearance 321.6 mL/min (>60); Globulin 2.9 gm/dL (2.3-3.5); Glucose 99 mg/dL (74-106); Magnesium 1.8 mg/dL (1.6-2.6); Osmolality,Calculated 280 (275-295); Phosphorous 3.6 mg/dL (2.4-5.1); Potassium 3.6 mMol/L (3.4-5.1); Sodium 142 mMol/L (136-145); Total Protein 6.7 gm/dL (5.7-8.2); eGFR > 60 See Note
[2025-10-11] MEDS: levETIRAcetam INJ 100 MG/ML VIAL 5ML 500 MG IVP ×2 (09:07→21:57)
[2025-10-11] MEDS: cefTRIAXone/D5w 1gm IV premix 1 GM/50 ML BAG IV (09:20)
--- NOTE | 2025-10-11 11:20 | XR_ITS ---
Examination: Venous duplex lower extremity sonogram, bilateral. Date and time of exam: October 11, 2025, 1350 hours INDICATIONS: Leg swelling and pain this week, hypoxia Technique: Multiple sonographic images of the deep venous system have been obtained. B-mode/2-D grayscale imaging of vascular structures and Doppler spectral analysis (waveforms) and color performed Both legs are examined. Findings: Deep venous systems do not demonstrate abnormal echogenicity. Limited study secondary to patient motion All visualized deep veins exhibit compressibility. All visualized deep veins exhibit augmentation. Impression: No DVT demonstrated
--- NOTE | 2025-10-11 11:21 | PC.SS ---
ECHO TECHNICIAN informed bedside nurse of need to conduct room air evaluation to assess patient's need for home oxygen.
--- NOTE | 2025-10-11 12:44 | PC.NURSE ---
pt was trialled off of 3l nasal canula. once on room air pt o2 saturation dropped to 87% on room air.
--- NOTE | 2025-10-11 14:47 | PD.RESDS ---
Planned Discharge Date 10/11/25 DS: Providers Provider Date of admission: 10/06/25 15:39 Primary care physician: Jeni Gamez NP Admitting Provider: Rodrick Ni MD Attending Provider on Admission: Rodrick Ni MD Consults: 10/06/25 15:08 Referral Registered Dietitian Stat Comment: Instructions: For trickle feeds please 10/06/25 16:05 Referral Wound Care Stat Comment: 10/06/25 16:12 Consult to Gastroenterology Routine Comment: PEG tube change please Consulting Provider: Ryan Smith 10/06/25 23:10 Referral Registered Dietitian Routine Comment: Attending Provider on DC: Abhi Li MD Discharging Provider: Abhi Li MD DS: Diagnosis Problem List Completed Was Problem List Reviewed/Reconciled?: Yes Hospital Course Hospital Course Hospital course: Summary: Aaron Zelaya 25M pmhx significant for TBI (2001) with seizures who presents with shortness of breath, fever and agitation, admitted for acute hypoxic spray failure secondary to influenza A pneumonia and CAP versus aspiration pneumonia. Patient presents with 4 days of shortness of breath, fever and agitation. In ED, 4/4 SIRS criteria met, HR 146, RR 33, temp 102 and WBC 14.3 with clear source. Influenza A +. Chest x-ray shows long spinal fusion, left lower lobe pneumonia, right lower posterior lobe pneumonitis. Patient was treated with Tamiflu and IV abx to cover for bacterial PNA, with improvement in oxygen requirement and vital signs. Of note family reports that PEG tube has been leaking for 4 days prior to admission due to significant coughing. GI was consulted, stating that leakage is likely bile with skin irritation around site for PEG site to be kept clean for adequate healing. On discharge, patient is hemodynamically stable, labs and vitals reviewed to be stable and patient is ready to be discharged home with home oxygen. Imaging: Chest x-ray shows long spinal fusion, left lower lobe pneumonia, right lower posterior lobe pneumonitis BLE US: negative DVT Discharge Recommendations: - Please take all medications as prescribed - START Tamiflu for one more day to end on 10/12, for a total 5 day course - START supplemental O2 as needed, titrate down as tolerated - Continue all home medications except as above - Please follow up with your PCP within one week of discharge - If your symptoms worsen, please seek immediate medical attention and return to your nearest emergency room. - If you do not have a PCP, you may follow up at the [facility] at [address], [facility] [address], Hospital Diagnoses: #Acute hypoxic respiratory failure 2/2 #Influenza A pneumonia #CAP versus aspiration pneumonia #?Cellulitis around PEG tube, less likely #SIRS #TBI #Seizures Plan of care discussed with attending Dr. Li, and PGY-2 Dr. Jovel. Fernanda Lima, DO Internal Medicine, PGY-1 Time Spent with Patient Time attestation: Total time spent providing and/or coordinating discharge services: Time spent: Greater than 30 minutes Exam Vital Signs Temp Pulse Resp BP Pulse Ox O2 Del Method O2 Flow Rate 98.8 F 128 H 29 H 124/91 H 94 L Nasal Cannula 2 10/11/25 12:00 10/11/25 12:00 10/11/25 12:00 10/11/25 12:00 10/11/25 12:00 10/11/25 12:00 10/11/25 12:00 Narrative Exam GENERAL: alert, no acute distress on oxymask 6L, non verbal HEENT: mucous membranes dry, bilateral sclera anicteric CARDIOVASCULAR: tachycardic regular rhythm, S1/S2 present, no murmurs appreciated PULMONARY: improved breath sounds bilaterally ABDOMINAL: soft, non-tender, non-distended, no rebound/guarding, bowel sounds present, PEG tube site clean with mild bile leakage EXTREMITIES: no peripheral edema, BUE flexed SKIN: warm and dry, intact, no rashes NEURO: CN II-XII grossly intact, alert Discharge Plan Plan Patient Disposition: HOME (Self Care) Patient condition on transfer: Stable and Benefits outweigh risks Care Plan Goals: ? You have been started on a medication oseltamivir for influenza. Take twice a day as directed below. ?You have been started on home oxygen as needed. ? Continue rest of your home medications as before. - Follow up with your primary care physician within 1 week of discharge. If you do not have a primary care physician, please follow up with the [facility] Residents clinic ([phone]) ? If you experience any new, worsening or persistent symptoms either call your primary doctor, or dial 911 or present to the emergency department. Prescriptions/Referrals Prescriptions/Med Rec: New oseltamivir [Tamiflu] 6 mg/mL suspension for reconstitution 30 mg PO BID 1 Days Qty: 10 0RF Continued levetiracetam 100 mg/mL solution 500 mg feeding tube BID Patient Comments: TAKE 5 MLS BY MOUTH TWICE A DAY ursodiol 500 mg tablet 1,000 mg feeding tube BID Patient Comments: TAKE 2 TABLET BY MOUTH TWICE DAILY DIRECTED TO BE CRUSHED AND MIX WITH WATER AND TAKE VIA PEG lorazepam 2 mg tablet 2 mg feeding tube DAILY PRN (Reason: seizures) Patient Comments: TAKE 1 TABLET BY MOUTH DAILY NEEDED FOR SEIZURE promethazine-DM 6.25-15 mg/5 mL syrup 5 ml feeding tube Q6H PRN (Reason: cough) Patient Comments: TAKE 5 ML BY MOUTH EVERY 6 HOURS NEEDED acetaminophen [M-PAP] 160 mg/5 mL liquid 640 mg feeding tube Q6H Patient Comments: TAKE 20 ML BY MOUTH EVERY 6 HOURS NEEDED albuterol sulfate 2.5 mg /3 mL (0.083 %) solution for nebulization 2.5 mg inhalation Q6H PRN (Reason: sob) Patient Comments: USE 1 VIAL VIA NEBULIZER EVERY 6 HOURS NEEDED FOR SHORTNESS OF BREATH Referrals: Jeni Gamez ALLIED HEALTH INSTRUCTOR [Primary Care Provider] Patient/Caregiver Discharge Instructions Education Materials: ED Influenza (Child) Print Language: Tajik Stand Alone Forms: Kelsey Award Info., Patient Portal Info Letter Quality Discharge Quality Measures VTE prophylaxis MD Attestestation MD Attestation I discussed with and supervised the resident physician who took care of this patient. I agree with the assessment and discharge plan as above. Follow-up with primary care provider as scheduled. The patient will have normal oxygen delivered. Return to the emergency room for recurrent symptoms
--- NOTE | 2025-10-11 14:56 | PC.SS ---
DME, oxygen; submitted on [employer]. Awaiting responses.
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
--- NOTE | 2025-10-11 21:18 | ESPR_ITS ---
Documentation for date of: 10/11/25 Subjective Subjective Interval history: PEG site looks good with the dressing changes Exam Vital Signs Temp Pulse Resp BP Pulse Ox O2 Del Method O2 Flow Rate 98 F 116 H 24 H 134/94 H 97 Nasal Cannula 2 10/11/25 20:00 10/11/25 20:00 10/11/25 20:00 10/11/25 20:00 10/11/25 20:00 10/11/25 20:00 10/11/25 20:00 Objective Labs 10/11/25 04:44 10/11/25 04:44 Labs: Laboratory Results - last 24 hr 10/11/25 04:44 WBC 9.0 RBC 4.49 L Hgb 12.5 L Hct 38.0 L MCV 85 MCH 27.8 MCHC 32.9 RDW Std Deviation 44.5 H Plt Count 440 D Neut % (Auto) 55 Lymph % (Auto) 29 [place] % (Auto) 14 H Eos % (Auto) 0 Baso % (Auto) 0 Neut # (Auto) 5.0 Lymph # (Auto) 2.6 [place] # (Auto) 1.3 H Eos # (Auto) 0.0 Baso # (Auto) 0.0 Immature Gran # (Auto) 0.15 H Absolute Nucleated RBC 0.00 Immature Gran % 2 H Nucleated RBC % 0 Sodium 142 Potassium 3.6 Chloride 103 Carbon Dioxide 26.5 Anion Gap 13 BUN 5 L Creatinine 0.3 L Estim Creat Clear Calc 321.6 eGFR > 60 BUN/Creatinine Ratio 17 Glucose 99 Calculated Osmolality 280 Calcium 8.8 Corrected Calcium 9.0 Phosphorus 3.6 Magnesium 1.8 Total Bilirubin 0.4 AST 53 H ALT 78 H Alkaline Phosphatase 106 Total Protein 6.7 Albumin 3.8 Globulin 2.9 Albumin/Globulin Ratio 1.3 Impressions Impression: Bile draining from the gastrostomy site doing well with the dressing changes no need to change the PEG tube Assessment & Plan A&P Narrative # Fever leukocytosis most likely due to the influenza A pneumonia and not the cellulitis at the PEG site might be contributing to the leukocytosis. There is possible Plan Continue IV antibiotics Clean the PEG site every shift with Betadine Will follow the patient Time Spent With Patient Time: Total time spent is greater than 50% in coordination of care (as documented) at patient's floor/unit and/or counseling patient:
--- NOTE | 2025-10-11 21:58 | PC.NURSE ---
called rachna guerrero to ask if she could get tamiflu 75 mg pill since it is only available in ER. Rachna guerrero sated that she is in another call and will call me back.
[2025-10-12] VITALS (7 sets, daily range): BP systolic 117–131; BP diastolic 78–90; PULSE 102–128; RESP 24–31; TEMP 36.2–37.4; O2SAT 92–99
[2025-10-12] MEDS: ALBUTEROL/IPRATROPIUM (Duoneb) RT SOL 3 ML NEBU INH ×3 (03:44→11:10)
[2025-10-12] MEDS: GABAPENTIN 300 MG CAPSULE GT (05:50)
[2025-10-12] MEDS: HEPARIN SOD INJ 5000 UNIT/ML VIAL SC (05:52)
[2025-10-12 05:56] LABS: Basophils # (Auto) 0.0 Thou/mm3 (0.0-0.2); Basophils % (Auto) 0 % (0-2.5); Eosinophils # (Auto) 0.1 Thou/mm3 (0.0-0.5); Eosinophils % (Auto) 1 % (0-10); Hematocrit 38.4 % (41.0-53.0); Hemoglobin 12.9 g/dL (13.5-16.0); Immature Granulocytes Auto 0.10 Thou/mm3 (0.00-0.00); Lymphocytes # (Auto) 2.1 Thou/mm3 (1.0-4.8); Lymphocytes % (Auto) 22 % (10-50); Mean Corpuscular HGB Conc 33.6 g/dl (31.0-37.0); Mean Corpuscular Hemoglobin 28.3 pg (25.0-35.0); Mean Corpuscular Volume 84 fL (80-100); Monocytes # (Auto) 1.3 Thou/mm3 (0.0-0.8); Monocytes % (Auto) 14 % (0-12); Neutrophils # (Auto) 5.6 Thou/mm3 (1.8-7.7); Neutrophils % (Auto) 61 % (37-80); Nucleated Red Blood Cell # 0.00 Thou/mm3 (0.00-0.00); Nucleated Red Blood Cell % 0 /100 WBC (0); Platelet Count 590 Thou/mm3 (140-440); RDW Standard Deviation 43.8 fL (35.1-43.9); Red Blood Count 4.56 Miln/mm3 (4.50-5.90); White Blood Count 9.2 Thou/mm3 (3.8-10.6)
[2025-10-12 06:30] LABS: Alanine Aminotransferase 66 U/L (10-49); Albumin, Serum 4.0 gm/dL (3.5-5.0); Albumin/Globulin Ratio 1.2 (1.2-2.2); Alkaline Phosphatase 112 U/L (46-116); Anion Gap 11 (7-16); Aspartate Amino Transferase 33 U/L (0-34); BUN/Creatinine Ratio 17 Ratio (12-20); Bilirubin,Total 0.4 mg/dL (0.3-1.2); Blood Urea Nitrogen 5 mg/dL (9-23); Calcium 9.3 mg/dL (8.3-10.6); Calcium (Corrected) 9.3 mg/dL (8.5-10.1); Carbon Dioxide 28.9 mMol/L (20.0-31.0); Chloride 98 mMol/L (98-107); Creatinine (Component) 0.3 mg/dL (0.6-1.3); Estimated Creatinine Clearance 321.6 mL/min (>60); Globulin 3.3 gm/dL (2.3-3.5); Glucose 104 mg/dL (74-106); Magnesium 1.9 mg/dL (1.6-2.6); Osmolality,Calculated 272 (275-295); Phosphorous 4.0 mg/dL (2.4-5.1); Potassium 3.8 mMol/L (3.4-5.1); Sodium 138 mMol/L (136-145); Total Protein 7.3 gm/dL (5.7-8.2); eGFR > 60 See Note
[2025-10-12] MEDS: cefTRIAXone/D5w 1gm IV premix 1 GM/50 ML BAG IV (09:09)
[2025-10-12] MEDS: levETIRAcetam INJ 100 MG/ML VIAL 5ML 500 MG IVP (09:10)
--- NOTE | 2025-10-12 11:39 | ESDS_ITS ---
<Statement entered by Brandyn Jovel MD - 10/12/25 22:48> I saw and examined patient personally and supervised PGY 1 resident, Dr. Lima with formulating a discharge plan. I agree with the documentation as listed below. Plan of care discussed with Attending Dr. Hope Jovel MD PGY 2 Disclaimer: This note was dictated by speech recognition. Minor errors in t ranscription may be present due to voice recognition software. Planned Discharge Date 10/12/25 DS: Providers Provider Date of admission: 10/06/25 15:39 Primary care physician: Jeni Gamez NP Admitting Provider: Rodrick Ni MD Attending Provider on Admission: Rodrick Ni MD Consults: 10/06/25 15:08 Referral Registered Dietitian Stat Comment: Instructions: For trickle feeds please 10/06/25 16:05 Referral Wound Care Stat Comment: 10/06/25 16:12 Consult to Gastroenterology Routine Comment: PEG tube change please Consulting Provider: Ryan Smith 10/06/25 23:10 Referral Registered Dietitian Routine Comment: Attending Provider on DC: Gonzalo Arnett MD Discharging Provider: Gonzalo Arnett MD DS: Diagnosis Problem List Completed Was Problem List Reviewed/Reconciled?: Yes Hospital Course Hospital Course Hospital course: Summary: Aaron Zelaya 25M pmhx significant for TBI (2001) with seizures who presents with shortness of breath, fever and agitation, admitted for acute hypoxic spray failure secondary to influenza A pneumonia and CAP versus aspiration pneumonia. Patient presents with 4 days of shortness of breath, fever and agitation. In ED, 4/4 SIRS criteria met, HR 146, RR 33, temp 102 and WBC 14.3 with clear source. Influenza A +. Chest x-ray shows long spinal fusion, left lower lobe pneumonia, right lower posterior lobe pneumonitis. Patient was treated with Tamiflu and IV abx to cover for bacterial PNA, with improvement in oxygen requirement and vital signs. Of note family reports that PEG tube has been leaking for 4 days prior to admission due to significant coughing. GI was consulted, stating that leakage is likely bile with skin irritation around site for PEG site to be kept clean for adequate healing. On discharge, patient is hemodynamically stable, labs and vitals reviewed to be stable and patient is ready to be discharged home with home oxygen. Imaging: Chest x-ray shows long spinal fusion, left lower lobe pneumonia, right lower posterior lobe pneumonitis BLE US: Discharge Recommendations: - Please take all medications as prescribed - START Tamiflu for one more day to end on 10/13, for a total 5 day course - START supplemental O2 as needed, titrate down as tolerated - Continue all home medications except as above - Please follow up with your PCP within one week of discharge - If your symptoms worsen, please seek immediate medical attention and return to your nearest emergency room. - If you do not have a PCP, you may follow up at the [facility] at [address] [place] [address] [address], [facility] [address], Hospital Diagnoses: #Acute hypoxic respiratory failure 2/2 #Influenza A pneumonia #CAP versus aspiration pneumonia #?Cellulitis around PEG tube, less likely #SIRS #TBI #Seizures Plan of care discussed with attending Dr. Arnett, and PGY-2 Dr. Jovel. Fernanda Lima, DO Internal Medicine, PGY-1 Time Spent with Patient Time attestation: Total time spent providing and/or coordinating discharge services: Time spent: Greater than 30 minutes Exam Vital Signs Temp Pulse Resp BP Pulse Ox O2 Del Method O2 Flow Rate 98.2 F 123 H 29 H 117/78 92 L Nasal Cannula 1 10/12/25 08:00 10/12/25 11:10 10/12/25 11:10 10/12/25 08:00 10/12/25 11:10 10/12/25 08:00 10/12/25 08:00 Narrative Exam GENERAL: alert, no acute distress on room air, non verbal HEENT: mucous membranes dry, bilateral sclera anicteric CARDIOVASCULAR: tachycardic regular rhythm, S1/S2 present, no murmurs appreciated PULMONARY: improved breath sounds bilaterally ABDOMINAL: soft, non-tender, non-distended, no rebound/guarding, bowel sounds present, PEG tube site clean EXTREMITIES: no peripheral edema, BUE flexed SKIN: warm and dry, intact, no rashes NEURO: CN II-XII grossly intact, alert Discharge Plan Plan Patient Disposition: HOME (Self Care) Patient condition on transfer: Stable and Benefits outweigh risks Care Plan Goals: ? You have been started on home oxygen as needed. - START Tamiflu for one more day to end on 10/13, for a total 5 day course ? Continue rest of your home medications as before. - Follow up with your primary care physician within 1 week of discharge. If you do not have a primary care physician, please follow up with the [facility] Residents clinic ([phone]) ? If you experience any new, worsening or persistent symptoms either call your primary doctor, or dial 911 or present to the emergency department. Prescriptions/Referrals Prescriptions/Med Rec: New oseltamivir 6 mg/mL Suspension For Reconstitution 75 mg G-tube BID 1 Days Qty: 25 0RF Continued levetiracetam 100 mg/mL solution 500 mg feeding tube BID Patient Comments: TAKE 5 MLS BY MOUTH TWICE A DAY ursodiol 500 mg tablet 1,000 mg feeding tube BID Patient Comments: TAKE 2 TABLET BY MOUTH TWICE DAILY DIRECTED TO BE CRUSHED AND MIX WITH WATER AND TAKE VIA PEG lorazepam 2 mg tablet 2 mg feeding tube DAILY PRN (Reason: seizures) Patient Comments: TAKE 1 TABLET BY MOUTH DAILY NEEDED FOR SEIZURE promethazine-DM 6.25-15 mg/5 mL syrup 5 ml feeding tube Q6H PRN (Reason: cough) Patient Comments: TAKE 5 ML BY MOUTH EVERY 6 HOURS NEEDED acetaminophen [M-PAP] 160 mg/5 mL liquid 640 mg feeding tube Q6H Patient Comments: TAKE 20 ML BY MOUTH EVERY 6 HOURS NEEDED albuterol sulfate 2.5 mg /3 mL (0.083 %) solution for nebulization 2.5 mg inhalation Q6H PRN (Reason: sob) Patient Comments: USE 1 VIAL VIA NEBULIZER EVERY 6 HOURS NEEDED FOR SHORTNESS OF BREATH Referrals: Jeni Gamez NP [Primary Care Provider] Patient/Caregiver Discharge Instructions Education Materials: ED Influenza (Child) Print Language: Northern Irish Stand Alone Forms: Kelsey Award Info., Patient Portal Info Letter Discharge Order Discharge Orders: Discharge (Routine); Ordered 10/12/25 Ordered By: Fernanda Lima Quality Discharge Quality Measures VTE prophylaxis Attestestation Attestation I have discussed and was present for the essential components of the discharge history, physical examination, diagnosis, and discharge treatment plan with the resident. I agree with the patient's discharge care as documented by the resident and amended herein by me. Patel Arnett DO. The patient understood all discharge instructions, all questions were answered satisfactorily. The patient was instructed to return to the Emergency Department is symptoms worsened or persisted. Patient discharged with home O2 although on room air at time of discharge home. Will complete 1 more day of Tamiflu, other antimicrobials have been discontinued. Patient was stable, afebrile at time of discharge home Although this document has been carefully reviewed, there may still be some phonetic and other typographical errors. These errors are purely grammatical due to imperfections in the software program and should not be construed in any way to compromise the substance of the patient's medical care during this visit.
== END 2025-10-12 12:25 | disposition home or self-care (01) | DRG 139 ==
LOC: SERX 15:09 → SERHOLD 15:55 → S3NX 22:37
PROVIDERS: Physician Assistant; Admitting Provider Student in an Organized Health Care Education/Training Program; Emergency Provider Emergency Medicine; PCP Nurse Practitioner Family; Visit Provider Student in an Organized Health Care Education/Training Program
DX: J10.08 Influenza due to other identified influenza virus with other specified pneumonia (principal); J96.01 Acute respiratory failure with hypoxia; K94.22 Gastrostomy infection; L03.311 Cellulitis of abdominal wall; G40.909 Epilepsy, unspecified, not intractable, without status epilepticus; L30.9 Dermatitis, unspecified; Z74.01 Bed confinement status; Z88.0 Allergy status to penicillin; Z98.1 Arthrodesis status; Z88.1 Allergy status to other antibiotic agents; E87.20 Acidosis, unspecified; J15.9 Unspecified bacterial pneumonia; J69.0 Pneumonitis due to inhalation of food and vomit; G82.20 Paraplegia, unspecified
CPT/HCPCS: 36415; 71045; 74018; 80053; 80202; 81001; 83605; 83690; 83735; 83880; 84100; 84132; 84439; 84443; 85025; 86331; 86635; 87040; 87081; 87086; 87205; 87502; 87811; 93005; 93225; 93970; 94640; 94667; 94762; 96361; 96365; 96375; 99284; A9270; J0131; J0456; J0696; J1100; J1644; J1953; J2470; J3374; J3375; J3475; J7030; J7050; J7120; J7999